=== PATIENT | female | born 1950 | race American Indian/Alaskan Native ===

== ENCOUNTER 2018-12-23 20:44 | Emergency (ER) | payer MEDICAID ==
[2018-12-23 20:50] VITALS: BP 181/86
--- NOTE | 2018-12-23 20:59 | Event Note ---
ED Screening Note Date of service: 12/23/18 Time: 20:53 ED Screening Note: 68 y o female presents to ED cc of right sided shoulder, arm and right eye tearing She denies weakness, or neuro defcit This initial assessment/diagnostic orders/clinical plan/treatment(s) is/are subject to change based on patients health status, clinical progression and re- assessment by fellow clinical providers in the ED. Further treatment and workup at subsequent clinical providers discretion. Patient/guardian urged not to elope from the ED as their condition may be serious if not clinically assessed and managed. Initial orders include:
== END 2018-12-23 23:01 | disposition left against medical advice (07) ==
LOC: ED 20:44
DX: M25.511 Pain in right shoulder (principal); Z53.21 Procedure and treatment not carried out due to patient leaving prior to being seen by health care provider